=== PATIENT | female | born 1975 | race African-American/Black ===

== ENCOUNTER → 2020-01-02 10:01 | Outpatient (CLI) | payer OTHER | END | disposition home or self-care (01) | LOC: D.MRI 10:01 | PROVIDERS: ATTEND Orthopaedic Surgery | DX: M75.121 Complete rotator cuff tear or rupture of right shoulder, not specified as traumatic (principal) ==

== ENCOUNTER → 2020-08-30 14:19 | Outpatient (CLI) | payer OTHER ==
[2020-02-24 08:57] VITALS: BMI 52.2
[~2020-08-30 14:19] MED LIST: GABAPENTIN100 MG PO; GLIPIZIDE10 MG PO; GLUCOPHAGE850 MG PO; KENALOG-4040 MG/ML IM; LISINOPRIL5 MG; PROZAC20 MG PO; ZOCOR10 MG PO
== END | disposition home or self-care (01) ==
LOC: D.MRI 14:19
PROVIDERS: ATTEND Nurse Practitioner Family
DX: M75.101 Unspecified rotator cuff tear or rupture of right shoulder, not specified as traumatic (principal)